=== PATIENT | male | born 1980 | race Caucasian/White ===

== ENCOUNTER 2021-06-30 05:04 | Emergency (ER) | payer OTHER ==
[~2021-06-30] VITALS: Ht 172.7 cm; Wt 63.6 kg
[2021-06-30 05:07] VITALS: BP 98/63
== END 2021-06-30 06:28 | disposition home or self-care (01) ==
LOC: ER 05:05
DX: H92.01 Otalgia, right ear (principal); R51.9 Headache, unspecified; M54.50 Low back pain, unspecified; Z72.89 Other problems related to lifestyle
CPT/HCPCS: 99281